=== PATIENT | female | born 1985 | race Caucasian/White ===

== ENCOUNTER 2018-11-23 17:08 | Emergency (ER) | payer OTHER ==
[~2018-11-23] VITALS: Ht 154.9 cm; Wt 90.7 kg
[~2018-11-23 17:08] MED LIST: ANTOXYBENA OT; CIPR500 PO; CLIN300 PO; CODACE30 PO; CRUTCH4 USE; ERYT.5TO OD; ESOM20 PO; FAMO20 PO; HYDACE5 PO; METO10 PO; MULVITMINE PO; NEOCOLOTSU OT; OMEP20ER PO; OXYACE5T PO; PROM25 PO; PSEU120ER PO; RXCLIN PO; RXOXYACE PO; SULTRIDS PO
[2018-11-23] MEDS ORDERED: Amoxicillin500 MG PO (17:52)
== END 2018-11-23 17:56 | disposition home or self-care (01) ==
LOC: ER 17:08
DX: K04.7 Periapical abscess without sinus (principal); Z88.0 Allergy status to penicillin; Z87.891 Personal history of nicotine dependence
CPT/HCPCS: 99282

== ENCOUNTER 2019-04-03 20:48 | Emergency (ER) | payer OTHER ==
[~2019-04-03] VITALS: Ht 154.9 cm; Wt 81.7 kg
[~2019-04-03 20:48] MED LIST changes: +Amoxicillin500 MG PO
[2019-04-03] MEDS ORDERED: BUPRENORPHINE HC8 MG SL (20:54)
== END 2019-04-03 21:56 | disposition home or self-care (01) ==
LOC: ER 20:48
DX: S89.92XA Unspecified injury of left lower leg, initial encounter (principal); Z90.49 Acquired absence of other specified parts of digestive tract; F17.290 Nicotine dependence, other tobacco product, uncomplicated; X50.1XXA Overexertion from prolonged static or awkward postures, initial encounter
CPT/HCPCS: 73562-LT; 99283-25

== ENCOUNTER 2019-05-30 12:44 | Emergency (ER) | payer OTHER ==
[~2019-05-30] VITALS: Ht 165.1 cm; Wt 113.4 kg
[~2019-05-30 12:44] MED LIST changes: +BUPRENORPHINE HC8 MG SL
== END 2019-05-30 13:27 | disposition home or self-care (01) ==
LOC: ER 12:44
DX: M25.562 Pain in left knee (principal); Z79.899 Other long term (current) drug therapy; F17.290 Nicotine dependence, other tobacco product, uncomplicated
CPT/HCPCS: 99281

== ENCOUNTER 2021-02-20 09:59 | Emergency (ER) | payer OTHER ==
[~2021-02-20] VITALS: Ht 154.9 cm; Wt 90.7 kg
[2021-02-20] MEDS ORDERED: IBUP400 PO (11:17)
== END 2021-02-20 11:25 | disposition home or self-care (01) ==
LOC: ER 09:59
DX: M25.531 Pain in right wrist (principal); Z87.891 Personal history of nicotine dependence
CPT/HCPCS: 29125; 73110; 99283-25; L3917

== ENCOUNTER 2023-05-23 23:58 | Emergency (ER) | payer OTHER ==
[~2023-05-23] VITALS: Ht 154.9 cm; Wt 81.7 kg
[~2023-05-23 23:58] MED LIST changes: +IBUP400 PO
[2023-05-24 00:41] LABS: Source, Urine Clean Catch
[2023-05-24 00:44] LABS: BASOPHILS ABSOLUTE AUTO 0.09 K/mm3 (0.00-0.23); BASOPHILS PERCENT AUTO 1 % (0-2); Bilirubin, Urine Neg (Neg); Blood, Urine 3+ (Neg); EOSINOPHILS ABSOLUTE AUTO 0.39 K/mm3 (0.00-0.68); EOSINOPHILS PERCENT AUTO 4 % (0-6); Glucose Qualitative, Urine Neg (Neg); Hematocrit 40.3 % (33.0-51.0); Hemoglobin 13.6 g/dL (11.5-16.0); IMMATURE GRAN ABSOLUTE AUTO 0.03 K/mm3 (0.00-0.10); IMMATURE GRAN PERCENT AUTO 0 % (0-1); Ketones, Urine Neg (Neg); LYMPHOCYTES ABSOLUTE AUTO 2.88 K/mm3 (0.84-5.20); LYMPHOCYTES PERCENT AUTO 27 % (21-46); Leukocyte Esterase, Urine 2+ (Neg); MONOCYTES ABSOLUTE AUTO 0.73 K/mm3 (0.16-1.47); MONOCYTES PERCENT AUTO 7 % (4-13); Mean Corpuscular HGB 29.6 pg (26.0-34.0); Mean Corpuscular HGB Conc 33.7 g/dL (31.5-36.5); Mean Corpuscular Volume 88 fL (80-100); Mean Platelet Volume 9.1 fL (9.1-12.4); NEUTROPHILS ABSOLUTE AUTO 6.71 K/mm3 (1.96-9.15); NEUTROPHILS PERCENT AUTO 62 % (41-73); Nitrite, Urine Pos (Neg); Platelet Count 383 K/mm3 (150-400); Protein, Urine 2+ (Neg); RDW Coefficient Variation 12.8 % (11.7-14.2); RDW Standard Deviation 40.8 fL (35.1-46.3); Specific Gravity, Urine 1.025 (1.003-1.022); Urobilinogen, Urine NORM (Normal); White Blood Cell Count 10.83 K/mm3 (4.00-11.30)
[2023-05-24 00:56] LABS: Appearance, Urine Hazy (Clear); Color, Urine Yellow (P-Yellow)
[2023-05-24 00:57] LABS: Amorphous Light (0-Heavy); Bacteria Many /hpf; Red Blood Cells, Urine 0-2 /hpf (0-2); Squamous Epithelial Cells Mod /hpf (Few); White Blood Cells, Urine 50-100 /hpf (0-5)
[2023-05-24 01:02] LABS: Albumin, Blood 3.5 g/dL (3.4-5.0); Albumin/Globulin Ratio 0.8 (0.8-1.8); Bilirubin, Total 0.3 mg/dL (0.1-1.0); Bun/Creatinine Ratio 11.6 (12.0-20.0); Calcium, Blood 8.9 mg/dL (8.5-10.1); Creatinine, Blood 0.86 mg/dL (0.40-1.00); Globulin, Blood 4.4 g/dL (2.2-4.0); Total Protein, Blood 7.9 g/dL (6.4-8.2)
[2023-05-24 01:17] VITALS: BP 137/95
[2023-05-24] MEDS ORDERED: Bactrim Ds Tab1 EACH PO (01:39)
== END 2023-05-24 01:50 | disposition home or self-care (01) ==
LOC: ER 23:58
PROVIDERS: Student in an Organized Health Care Education/Training Program
DX: N39.0 Urinary tract infection, site not specified (principal); F17.200 Nicotine dependence, unspecified, uncomplicated
CPT/HCPCS: 80053; 81001; 81025; 83690; 85025; 87077; 87086; 87186; 99283; A9270

== ENCOUNTER → 2023-12-14 | Outpatient (CLI) | payer OTHER ==
[~2023-12-14] MED LIST changes: +Bactrim Ds Tab1 EACH PO
[2023-12-14 18:38] LABS: U Amphetamine Screen Not Detected; U Barbituate Screen Not Detected; U Benzodiazapine Screen Not Detected; U Buprenorphine Screen DETECTED; U Cannabinoids Screen Not Detected; U Cocaine Screen Not Detected; U Methadone Screen Not Detected; U Methamphetamine Screen Not Detected; U Opiates Screen Not Detected; U Oxycodone Screen Not Detected; U Phencyclidine Screen Not Detected
[2023-12-18 13:42] LABS: BUPRENORPHINE GLUC,URN,QUANT 429 ng/mL; BUPRENORPHINE,URN,QUANT >1000 ng/mL; NALOXONE,URN,QUANT <100 ng/mL; NORBUPRENORPHINE GLUC,UR,QUANT 755 ng/mL; NORBUPRENORPHINE,URN,QUANT 519 ng/mL
== END ==
LOC: LAB EV 12:05 → LAB SHORT 12:05 → EDSTATUS 12-13 14:10 → LAB FUT 12-13 14:10
DX: F11.20 Opioid dependence, uncomplicated (principal)
CPT/HCPCS: G0480

== ENCOUNTER 2024-04-20 23:03 | Emergency (ER) | payer OTHER ==
[~2024-04-20] VITALS: Ht 154.9 cm; Wt 90.7 kg
[2024-04-20 23:21] VITALS: BP 164/108
== END 2024-04-21 00:27 | disposition home or self-care (01) ==
LOC: ER 23:03
DX: M79.604 Pain in right leg (principal); F17.290 Nicotine dependence, other tobacco product, uncomplicated; Z79.899 Other long term (current) drug therapy
CPT/HCPCS: 93971; 99283-25

== ENCOUNTER 2025-01-09 22:04 | Emergency (ER) | payer OTHER ==
[~2025-01-09] VITALS: Ht 172.7 cm; Wt 99.8 kg
[2025-01-09 22:08] VITALS: BP 197/124
[2025-01-09] MEDS ORDERED: CefTRIAXone 1000 MG Vial IM ONE (22:15)
[2025-01-09] MEDS ORDERED: DOXY100 PO (22:37)
[2025-01-10 00:03] LABS: Chlamydia Trachomatis Urine NOT DETECTED (NOT DETECT); Neisseria Gonorrhoea Urine NOT DETECTED (NOT DETECT)
== END 2025-01-09 22:47 | disposition home or self-care (01) ==
LOC: ER 22:04
PROVIDERS: Physician Assistant
DX: Z11.3 Encounter for screening for infections with a predominantly sexual mode of transmission (principal); A74.9 Chlamydial infection, unspecified; Z79.899 Other long term (current) drug therapy; Z87.891 Personal history of nicotine dependence
CPT/HCPCS: 87491; 87591; 99283; J0696